=== PATIENT | female | born 1950 | race Caucasian/White ===

== ENCOUNTER 2017-09-29 12:21 | Outpatient (CLI) | payer MEDICARE ==
[2017-09-29] MEDS ORDERED: Iopamidol 370 76% 100 ML VIAL ONE (15:06)
== END 2017-09-29 12:22 | disposition home or self-care (01) ==
LOC: BICCT 12:21
PROVIDERS: ATTEND Family Medicine
DX: R19.01 Right upper quadrant abdominal swelling, mass and lump (principal); K44.9 Diaphragmatic hernia without obstruction or gangrene; N28.1 Cyst of kidney, acquired
CPT/HCPCS: 74170